=== PATIENT | male | born 1995 | race African-American/Black ===

== ENCOUNTER 2019-05-19 18:56 | Emergency (ER) | payer OTHER ==
[2019-05-19 19:16] VITALS: BP 108/58; PULSE 60; TEMP 98.3; BMI 20.2
[2019-05-19] MEDS ORDERED: DIPHTH,PERTUSS(ACELL),TET 0.5 ML DISP.SYRIN IM ONE ×2 (19:25→19:29)
[2019-05-19] MEDS ORDERED: IBUPROFEN 400 MG TABLET (FP) PO ONE ×2 (19:25→19:28)
--- NOTE | 2019-05-19 19:47 | PDOC ---
History of Present Illness - General Chief Complaint: Injury Stated Complaint: LEFT HARM INJURD Time Seen by Provider: 05/19/19 19:22 History Source: Patient Exam Limitations: Clinical Condition - History of Present Illness Initial Comments: 05/19/19 19:49 Patient with no significant past medical history present with complaint of laceration to palm of left hand status post lifting the medical and accidentally slip cutting thumb side of left palm. Patient reported throbbing pain to area. Denies numbness or tingling sensation. Denies any other symptoms. Patient does not recall last tetanus vaccine Timing/Duration: 1-3 hours Past History - Past Medical History Allergies/Adverse Reactions: Allergies Allergy/AdvReac Type Severity Reaction Status Date / Time No Known Allergies Allergy Verified 05/19/19 19:12 Home Medications: Ambulatory Orders Cephalexin Monohydrate [Keflex -] 500 mg PO BID 7 Days #14 capsule 05/19/19 Ibuprofen 800 mg PO Q8H PRN #20 tablet 05/19/19 COPD: No - Suicide/Smoking/Psychosocial Hx Smoking History: Never smoked Review of Systems - Review of Systems Able to Perform ROS?: Yes Is the patient limited Nepalese proficient: No Constitutional: No: Malaise, Weakness HEENTM: No: Symptoms Reported Respiratory: No: Symptoms reported Cardiac (ROS): No: Symptoms Reported Musculoskeletal: Yes: Symptoms Reported, See HPI, Muscle Pain (left hand) Integumentary: Yes: Symptoms Reported, See HPI, Other (laceration to palm of left hand) Neurological: No: Numbness, Paresthesia, Tingling All Other Systems: Reviewed and Negative *Physical Exam - Vital Signs Last Vital Signs Temp Pulse Resp BP Pulse Ox 98.3 F 60 18 108/58 L 98 05/19/19 19:09 05/19/19 19:09 05/19/19 19:09 05/19/19 19:09 05/19/19 19:09 - Physical Exam Comments: 05/19/19 19:53 GENERAL: Well developed, well nourished. Awake and alert. No acute distress. CARDIOVASCULAR: Regular rate and rhythm. No murmurs, rubs, or gallops. PULMONARY: No evidence of respiratory distress. MUSCULOSKELETAL : 1 cm superficial laceration to thenar muscle left hand with minimal bleeding. Free range of motion of hand. 5 out of 5 muscle strength to hand.No bony deformities SKIN: Warm and dry. Normal capillary refill. No rashes. No jaundice. NEUROLOGICAL: Alert, awake, appropriate. No motor deficits in the lower extremities. Gait is normal without ataxia. PSYCHIATRIC: Cooperative. Good eye contact. Appropriate mood and affect. General Appearance: Yes: Nourished, Appropriately Dressed. No: Apparent Distress Procedures - Laceration/Wound Repair Left Anterior Hand Wound Length: to 2.5 cm (1cm) Wound Explored: no foreign body present Wound's Depth, Shape: superficial, linear Irrigated w/ Saline: Yes Betadine Prep: Yes Wound Repaired With: Steri-strips, Dermabond Sterile Dressing Applied: Yes Splint Applied: No Sling Applied: No ED Treatment Course - Medications Given in the ED: ED Medications Discontinued Medications Generic Name Dose Route Start Last Admin Trade Name Freq PRN Reason Stop Dose Admin Diphtheria/Tetanus/Acell Pertussis 0.5 ml 05/19/19 19:25 05/19/19 19:32 Boostrix - IM 05/19/19 19:26 0.5 ml .ONCE ONE Administration Ibuprofen 800 mg 05/19/19 19:25 05/19/19 19:33 Motrin - PO 05/19/19 19:26 800 mg ONCE ONE Administration Medical Decision Making - Medical Decision Making 05/19/19 19:50 Patient with no significant past medical history present with complaint of laceration to palm of left hand status post lifting the medical and accidentally slip cutting thumb side of left palm. Patient reported throbbing pain to area. Denies numbness or tingling sensation. Denies any other symptoms. Patient does not recall last tetanus vaccine Exam significant for 1 cm superficial laceration to thenar muscle left hand with minimal bleeding. Free range of motion of hand. 5 out of 5 muscle strength to hand. Wound cleaned with Betadine and hydrogen peroxide. Wound closed with Dermabond. Steri-Strips applied to wound. Left hand wrapped with Shay bandage. Patient is stable for discharge on Keflex antibiotics for infection prophylaxis and Motrin as needed for pain. Tetanus vaccine given. Patient is stable for discharge *DC/Admit/Observation/Transfer Diagnosis at time of Disposition: Laceration of left hand Qualifiers: Encounter type: initial encounter Foreign body presence: without foreign body Qualified Code(s): S61.412A - Laceration without foreign body of left hand, initial encounter - Discharge Dispostion Disposition: HOME Condition at time of disposition: Stable Decision to Admit order: No - Prescriptions Prescriptions: Cephalexin Monohydrate [Keflex -] 500 mg PO BID 7 Days #14 capsule Ibuprofen 800 mg PO Q8H PRN #20 tablet PRN Reason: pain - Referrals Referrals: Maximo Sousa MD [Staff Physician] - - Patient Instructions Printed Discharge Instructions: DI for Laceration Repair Steri-Strips, DI for Laceration Repair With Dermabond Additional Instructions: Keep wound clean and dry for the next 24 hours. Take prescribed medication as prescribed. Rest left hand for the next 2 days. Follow-up referred hand specialist as needed - Post Discharge Activity Forms/Work/School Notes: Back to Work
== END 2019-05-19 19:52 | disposition home or self-care (01) ==
LOC: JERFT 18:56
PROC: 0HQGXZZ Repair Left Hand Skin, External Approach (ICD-10-PCS; principal; 2019-05-19)
PROC: 3E0234Z Introduction of Serum, Toxoid and Vaccine into Muscle, Percutaneous Approach (ICD-10-PCS; 2019-05-19)
DX: S61.412A Laceration without foreign body of left hand, initial encounter (principal); W26.8XXA Contact with other sharp object(s), not elsewhere classified, initial encounter; Y93.89 Activity, other specified; Y92.89 Other specified places as the place of occurrence of the external cause; Y99.8 Other external cause status
CPT/HCPCS: 90715; 99281-25